=== PATIENT | male | born 1965 | race African-American/Black ===

== ENCOUNTER 2021-10-26 16:06 | Emergency (ER) | payer BC, MEDICAID ==
[~2021-10-26] VITALS: Ht 172.7 cm; Wt 72.9 kg
[2021-10-26 16:25] VITALS: BP 105/75
== END 2021-10-26 17:45 | disposition home or self-care (01) ==
LOC: ER 16:06
DX: G56.32 Lesion of radial nerve, left upper limb (principal); G56.22 Lesion of ulnar nerve, left upper limb
CPT/HCPCS: 29125; 99282; 99283